=== PATIENT | male | born 1970 | race African-American/Black ===

== ENCOUNTER 2017-02-21 22:12 | Emergency (ER) | payer OTHER ==
[~2017-02-21] VITALS: Ht 175.3 cm; Wt 118.2 kg
[2017-02-22 00:40] VITALS: BP 163/109
[2017-02-22] MEDS ORDERED: HYDROCODONE/ACETAMINOPHEN 5-325 MG TABLET PO ONE (00:45)
== END 2017-02-22 01:09 | disposition home or self-care (01) ==
LOC: EMS 22:14
DX: S83.91XA Sprain of unspecified site of right knee, initial encounter (principal); V49.88XA Car occupant (driver) (passenger) injured in other specified transport accidents, initial encounter; Y93.02 Activity, running; Y92.89 Other specified places as the place of occurrence of the external cause; Y99.2 Volunteer activity
CPT/HCPCS: 29505; 99284

== ENCOUNTER 2025-09-26 11:57 | Inpatient (IN) | payer OTHER ==
[~2025-09-26] VITALS: Ht 175.3 cm; Wt 100.0 kg
[2025-09-26 14:46] LABS: PLATELET COUNT (AUTO) 302 K/uL (150-450); RED BLOOD CELL COUNT(AUTO) 4.88 MIL/uL (4.50-5.90); RED CELL DISTRIBUTION WIDTH 13.5 % (11.5-14.5); WHITE BLOOD COUNT (AUTO) 6.0 K/uL (4.5-11.0)
[2025-09-26 14:55] LABS: CALCIUM, TOTAL 9.1 mg/dL (8.8-10.5); CREATININE 1.31 mg/dL (0.60-1.30); GLOMERULAR FILTR. RATE CALC > 60 mL/min (>60); GLUCOSE,RANDOM 95 mg/dL (70-110); SODIUM SERUM 138 mmol/L (136-145); UREA NITROGEN, BLOOD 11 mg/dL (7-18)
[2025-09-26 15:03] LABS: ASPARTATE AMINOTRANSFERASE 27.0 U/L (15-37); CREATINE KINASE, TOTAL ONLY 518.0 U/L (39-308); TOTAL PROTEIN, SERUM 7.8 g/dL (6.4-8.2)
[2025-09-26 15:07] LABS: TROPONIN I-HIGH SENSITIVITY 20 ng/L (<76)
[2025-09-26] MEDS ORDERED: MORPHINE SULFATE 4 MG/ML SYRINGE IVP PRN (16:45)
[2025-09-26] MEDS ORDERED: ONDANSETRON HCL 4 MG/2 ML VIAL IVP PRN (16:45)
[2025-09-26] MEDS ORDERED: BISACODYL 10 MG RECTAL RECTAL SUPPOSITORY PR PRN (16:45)
[2025-09-26] MEDS ORDERED: HYDROCODONE/ACETAMINOPHEN 5-325 MG TABLET PO PRN (16:45)
[2025-09-26] MEDS ORDERED: ZOLPIDEM TARTRATE 5 MG TABLET PO PRN (16:45)
[2025-09-26] MEDS ORDERED: MAGNESIUM HYDROXIDE SUSPENSION 30 ML UDCUP PO PRN (16:45)
[2025-09-26] MEDS ORDERED: ACETAMINOPHEN 325 MG TABLET PO PRN (16:45)
[2025-09-26] MEDS: POTASSIUM CHLORIDE 20 MEQ ER TABLET PO ONE (17:12)
[2025-09-26 18:57] VITALS: BP 151/85; PULSE 86; RESP 18; TEMP 98.4; O2SAT 100
[2025-09-26 20:04] VITALS: BP 140/53; PULSE 52; RESP 18; TEMP 97.3; O2SAT 99
[2025-09-26 20:11] VITALS: BP 133/76; PULSE 85; RESP 19; TEMP 98.4; O2SAT 98
[2025-09-26] MEDS: DOCUSATE SODIUM 100 MG CAPSULE PO SCH (20:26)
[2025-09-26 23:51] VITALS: BP 158/80; PULSE 64; RESP 19; TEMP 97.9; O2SAT 97
[2025-09-27] MEDS: HEPARIN SODIUM,PORCINE 5,000 UNITS/ML VIAL SQ SCH
[2025-09-27 03:20] VITALS: BP 147/87; PULSE 69; RESP 18; TEMP 98.1; O2SAT 100
[2025-09-27 04:28] LABS: APPEARANCE,URINE CLEAR (CLEAR); GLUCOSE, URINE (UA) NEGATIVE (NEGATIVE); LEUKOCYTE ESTERASE ,URINE NEGATIVE (NEGATIVE); NITRATE,URINE NEGATIVE (NEGATIVE); OCCULT BLOOD,URINE NEGATIVE (NEGATIVE); PH,URINE DRUG SCREEN 6.5 (5.0-8.0); SPECIFIC GRAVITIY, URINE 1.024 (1.003-1.030)
[2025-09-27 04:37] LABS: ALCOHOL, URINE DRUG SCREEN NEGATIVE (NEGATIVE); AMPHET/METH SCREEN,URINE POSITIVE (NEGATIVE); BARBITURATE SCREEN, URINE NEGATIVE (NEGATIVE); CANNABINOID SCREEN,URINE POSITIVE (NEGATIVE); COCAINE SCREEN,URINE NEGATIVE (NEGATIVE); METHADONE SCREEN, URINE NEGATIVE (NEGATIVE)
[2025-09-27 04:39] LABS: SQUAMOUS EPITHELIAL CELL,UR Few /LPF (None Seen)
[2025-09-27 06:36] LABS: PLATELET COUNT (AUTO) 322 K/uL (150-450); RED BLOOD CELL COUNT(AUTO) 5.22 MIL/uL (4.50-5.90); RED CELL DISTRIBUTION WIDTH 13.4 % (11.5-14.5); WHITE BLOOD COUNT (AUTO) 4.6 K/uL (4.5-11.0)
[2025-09-27 06:38] LABS: CALCIUM, TOTAL 9.0 mg/dL (8.8-10.5); CREATININE 1.25 mg/dL (0.60-1.30); GLOMERULAR FILTR. RATE CALC > 60 mL/min (>60); GLUCOSE,RANDOM 99 mg/dL (70-110); SODIUM SERUM 138 mmol/L (136-145); UREA NITROGEN, BLOOD 11 mg/dL (7-18)
[2025-09-27 07:06] VITALS: BP 145/88; PULSE 74; RESP 18; TEMP 97.7; O2SAT 98
[2025-09-27] MEDS: PANTOPRAZOLE SODIUM 40 MG DR TABLET PO SCH (08:21)
[2025-09-27 10:54] VITALS: BP 152/85; PULSE 72; RESP 20; TEMP 97.9; O2SAT 100
[2025-09-27 15:20] VITALS: BP 132/65; PULSE 72; RESP 18; TEMP 98.4; O2SAT 97
[2025-09-27 20:00] VITALS: BP 145/75; PULSE 70; RESP 20; TEMP 98.4; O2SAT 98
[2025-09-28] VITALS: BP 147/88; PULSE 69; RESP 19; TEMP 98.2; O2SAT 97
[2025-09-28 04:00] VITALS: BP 176/85; PULSE 68; RESP 18; TEMP 98.2; O2SAT 98
[2025-09-28 06:36] LABS: CALCIUM, TOTAL 8.9 mg/dL (8.8-10.5); CREATININE 1.32 mg/dL (0.60-1.30); GLOMERULAR FILTR. RATE CALC > 60 mL/min (>60); GLUCOSE,RANDOM 97 mg/dL (70-110); SODIUM SERUM 137 mmol/L (136-145); UREA NITROGEN, BLOOD 13 mg/dL (7-18)
[2025-09-28 06:47] LABS: PLATELET COUNT (AUTO) 332 K/uL (150-450); RED BLOOD CELL COUNT(AUTO) 5.35 MIL/uL (4.50-5.90); RED CELL DISTRIBUTION WIDTH 13.0 % (11.5-14.5); WHITE BLOOD COUNT (AUTO) 4.5 K/uL (4.5-11.0)
[2025-09-28 07:45] VITALS: BP 166/61; PULSE 96; RESP 20; TEMP 98.2; O2SAT 99
[2025-09-28 11:18] VITALS: BP 174/95; PULSE 92; RESP 18; TEMP 97.9; O2SAT 97
[2025-09-28] MEDS: METOPROLOL TARTRATE 50 MG TABLET PO ONE (12:07)
[2025-09-28] MEDS: POTASSIUM CHLORIDE 20 MEQ ER TABLET PO ONE (12:07)
[2025-09-28 12:39] LABS: CHOL/HDL RATIO 3.7 (4.2-7.3); LDL CHOL (CALC.) 106.0 mg/dL (0-130)
[2025-09-28 15:03] VITALS: BP 152/96; PULSE 86
[2025-09-28] MEDS: LOSARTAN POTASSIUM 25 MG TABLET PO ONE (15:53)
[2025-09-28 15:56] VITALS: BP 140/92; PULSE 73; RESP 19; TEMP 97.8; O2SAT 100
[2025-09-28] MEDS ORDERED: AMLO-258 PO (16:06)
[2025-09-28] MEDS ORDERED: METO50 PO (16:06)
[2025-09-28] MEDS ORDERED: LOSA-417 PO (16:06)
[2025-09-28] MEDS ORDERED: ASPI-1450 PO (16:06)
[2025-09-28] MEDS ORDERED: ATOR10TA PO (16:06)
[2025-09-28] MEDS ORDERED: METOPROLOL TARTRATE 50 MG TABLET PO SCH (21:00)
[2025-09-29] MEDS ORDERED: LOSARTAN POTASSIUM 25 MG TABLET PO SCH (09:00)
== END 2025-09-28 17:00 | disposition home or self-care (01) | DRG 305 ==
LOC: EMS 12:20 → EDH 15:46 → 5S 18:40
PROVIDERS: ADMIT Internal Medicine; ATTEND Internal Medicine
DX: I16.0 Hypertensive urgency (principal); E78.5 Hyperlipidemia, unspecified; I10 Essential (primary) hypertension; E87.6 Hypokalemia
CPT/HCPCS: 71045; 80048; 80061; 80076; 80307; 81001; 82550; 83735; 83880; 84484; 85025; 93005; 93306; 99285; J0360; J1644; 36415-L1; 36415-TC